=== PATIENT | male | born 1985 | race Caucasian/White ===

== ENCOUNTER → 2020-11-28 | Outpatient (CLI) | payer OTHER | LOC: KOH-I 15:15 | DX: M25.372 Other instability, left ankle (principal) | CPT/HCPCS: 73721 ==

== ENCOUNTER 2021-12-05 16:44 | Emergency (ER) | payer MEDICAID ==
[2021-12-05] MEDS ORDERED: ZANAFLEX4 M1 PO (19:59)
[2021-12-05] MEDS ORDERED: IBU600 MG PO (19:59)
== END 2021-12-05 20:00 | disposition home or self-care (01) ==
LOC: ER1 16:44
DX: S39.012A Strain of muscle, fascia and tendon of lower back, initial encounter (principal); X50.0XXA Overexertion from strenuous movement or load, initial encounter
CPT/HCPCS: 72100; 99283

== ENCOUNTER 2022-01-28 22:02 | Emergency (ER) | payer SELFPAY ==
[~2022-01-28 22:02] MED LIST: IBU600 MG PO; ZANAFLEX4 M1 PO
== END 2022-01-29 02:25 | disposition left against medical advice (07) ==
LOC: ER1 22:02
DX: Z53.21 Procedure and treatment not carried out due to patient leaving prior to being seen by health care provider (principal)